=== PATIENT | male | born 1970 | race Caucasian/White ===

== ENCOUNTER 2016-11-25 21:08 | Emergency (ER) | payer SELFPAY ==
[2016-11-25 21:10] VITALS: BP 144/84; PULSE 101; RESP 16; TEMP 100.5; O2SAT 98
[2016-11-26] MEDS ORDERED: CLIN1CAP6 PO (00:17)
== END 2016-11-25 22:10 | disposition left against medical advice (07) ==
LOC: NED 21:08
DX: K08.89 Other specified disorders of teeth and supporting structures (principal); Z53.21 Procedure and treatment not carried out due to patient leaving prior to being seen by health care provider
CPT/HCPCS: 99281

== ENCOUNTER 2016-11-25 22:20 | Emergency (ER) | payer BC ==
[~2016-11-25] VITALS: Ht 182.9 cm; Wt 94.7 kg
[2016-11-25 22:25] VITALS: BP 135/82; PULSE 120; RESP 16; TEMP 100.8; O2SAT 98
--- NOTE | 2016-11-25 22:43 | PD ---
HPI Chief Complaint: ENT Complaint Time Seen by Provider: 22:35 Travel History International Travel<30 days: No Contact w/Intl Traveler<30days: No Traveled to known affect area: No History of Present Illness HPI The patient is a 46-year-old male that complains of pain to the right of the throat and below the mandible beginning last night. He woke up in the night complaining of this pain and later on he had chills. He gets the chills that bothered him and he went to an urgent care center and got a shot of Rocephin IM. He comes in again today because of the chills. There is been no airway obstruction at this time. He did have some slight dental pain on one of the right lower molars, this is resolving. [facility] Social History Tobacco Use: No Allergies-Medications (Allergen,Severity, Reaction): Coded Allergies: No Known Allergies (Unverified , 11/25/16) Review of Systems Except as stated in HPI: all other systems reviewed are Neg Physical Exam Narrative GENERAL: Well-nourished, well-developed patient in slight apparent distress with his submandibular/throat pain. His vital signs show temperature 100.8 with heart rate of 120 but are otherwise normal. SKIN: Focused skin assessment warm/dry. No skin rash is seen. HEAD: Normocephalic. EYES: No scleral icterus. No injection or drainage. NECK: Supple, trachea midline. No JVD or lymphadenopathy. CARDIOVASCULAR: Regular rate and rhythm without murmurs, gallops, or rubs. RESPIRATORY: Breath sounds equal bilaterally. No accessory muscle use. GASTROINTESTINAL: Abdomen soft, non-tender, nondistended. MUSCULOSKELETAL: No cyanosis, or edema. BACK: Nontender without obvious deformity. No CVA tenderness. DENTAL: No loose or chipped teeth. No malocclusion. There is minimal tenderness on the lower right posterior most molar, tooth #32. No drainable abscess is noted. ENT: The throat shows no erythema or exudate. There are no peritonsillar abscess is present. There is tenderness below the right mandible which appears lymph nodes. There is slight swelling below the mandible but no doughy swelling. Data Data Last Documented VS Vital Signs Date Time Temp Pulse Resp B/P (MAP) Pulse Ox O2 Delivery O2 Flow Rate FiO2 11/25/16 22:50 18 11/25/16 22:25 100.8 120 135/82 (99) [address] Soft Tiss Neck W Iv Cont (11/25/16 22:35) Ceftriaxone Inj (Rocephin Inj) (11/25/16 23:45) Iohexol 350 Inj (Omnipaque 350 Inj) (11/25/16 23:36) MDM Medical Decision Making Medical Screen Exam Complete: Yes Emergency Medical Condition: Yes Medical Record Reviewed: Yes Interpretation(s) The CT soft tissue neck shows subcutaneous swelling and inflammatory changes lateral to the right mandible and in the submandibular region there are mildly enlarged right submandibular lymph nodes up to 1.4 cm. This is likely cellulitis no discrete abscess is noted. There are no airway obstructing lesions or foreign bodies. The apices are clear. Differential Diagnosis Cellulitis of the right mandibular region, Deshawn's angina, enlarged lymph nodes , neck abscess, Narrative Course The patient has cellulitis of the right mandibular region and mildly enlarged lymph nodes. There is no airway obstruction at this time. There is no evidence of development of Deshawn's angina. Plan: The patient will continue his clindamycin and we will give him a neither dose of Rocephin IV. He should return immediately if worse. Follow-up with his primary care physician. Diagnosis Primary Impression: Cellulitis, neck Additional Impression: Enlarged lymph node in neck Additional Instructions: Take your clindamycin as scheduled. If worse, follow-up with the [facility] or here. Follow-up here if you have an airway problem. Med/Other Pt SpecificInfo: No Change to Meds Disposition: 01 DISCHARGE HOME Condition: Stable Efrain Stoddard MD Nov 25, 2016 22:43
[2016-11-25] MEDS ORDERED: IOHEXOL 350 MG/ML 10 ML VIAL (for RAD DIAG) IV PUSH ONE (23:36)
--- NOTE | 2016-11-25 23:36 | RADRPT ---
EXAM DATE/TIME: 11/25/2016 23:15 [facility] COMPARISON: No previous studies available for comparison. INDICATIONS : Evaluate for abscess. Right neck pain. IV CONTRAST: 100 cc Omnipaque 350 (iohexol) IV RADIATION DOSE: 14.90 CTDIvol (mGy) MEDICAL HISTORY : None SURGICAL HISTORY : None. ENCOUNTER: Initial ACUITY: 1 day PAIN SCALE: 2/10 LOCATION: Right neck mandible TECHNIQUE: Volumetric scanning of the neck was performed. Using automated exposure control and adjustment of th e mA and/or kV according to patient size, radiation dose was kept as low as reasonably achievable to obtain optimal diagnostic quality images. DICOM format image data is available electronically for r eview and comparison. FINDINGS: There is subcutaneous swelling and inflammatory changes lateral to the right mandible and in the subm andibular region is mildly enlarged right submandibular lymph nodes up to 1.4 cm. Findings are most c haracteristic of a cellulitis. No discrete abscess. Dental hardware does obscure evaluation of the te eth. The airway obstructing lesions or foreign bodies. No apices are clear. CONCLUSION: 1. Cellulitis of the right submandibular region with mildly enlarged reactive lymph nodes. No discret e abscess. Dagoberto Avila MD on November 25, 2016 at 23:31 Board Certified Radiologist. This report was verified electronically.
[2016-11-25] MEDS ORDERED: cefTRIAXone INJ 1,000 MG in SODIUM CHLORIDE 0.9% INJ 100 ML IV ONE (23:45)
[2016-11-26] MEDS ORDERED: CLIN1CAP6 PO (00:17)
[2016-11-26 00:48] VITALS: BP 142/78; TEMP 99.3
== END 2016-11-26 00:51 | disposition home or self-care (01) ==
LOC: PHED 22:20
DX: L03.221 Cellulitis of neck (principal); R59.0 Localized enlarged lymph nodes
CPT/HCPCS: 70491; 96365; 99285; J0696; Q9967